=== PATIENT | male | born 1975 | race Caucasian/White ===

== ENCOUNTER 2017-01-08 00:15 | Inpatient (IN) | payer OTHER ==
[~2017-01-08] VITALS: Ht 177.8 cm; Wt 110.7 kg
[2017-01-08 00:01] VITALS: BP 144/96
[2017-01-08] MEDS ORDERED: hydrALAZINE 20 MG/ML VIAL. IVP PRN (00:30)
[2017-01-08] MEDS ORDERED: ONDANSETRON PF 4 MG/2 ML VIAL. IV PRN (00:30)
[2017-01-08] MEDS ORDERED: HYDROmorphone 2 MG/ML VIAL IV PRN (00:30)
[2017-01-08] MEDS ORDERED: ACETAMINOPHEN 325 MG TABLET. PO PRN (00:30)
[2017-01-08] MEDS: IV NORMAL SALINE 1000ML BAG 1,000 ML IV SCH ×2 (00:51→10:30)
[2017-01-08] MEDS ORDERED: HYDROmorphone 2 MG/ML VIAL IV ONE (01:45)
[2017-01-08 03:10] VITALS: BP 144/86
[2017-01-08] MEDS ORDERED: ROPI1TAB PO (03:46)
[2017-01-08] MEDS ORDERED: AMLO5TAB2 PO (03:46)
[2017-01-08] MEDS ORDERED: MIRT7.5T8 PO (03:46)
[2017-01-08] MEDS ORDERED: POTA10TA17 PO (03:46)
[2017-01-08] MEDS ORDERED: ZOLP5TAB PO (03:46)
[2017-01-08] MEDS ORDERED: PARO40TA3 PO (03:46)
[2017-01-08] MEDS: HYDROmorphone 2 MG/ML VIAL IV PRN ×4 (04:28→12:49)
[2017-01-08 05:05] LABS: BASO % 0 % (0-3); EOS % 1 % (0-3); HEMATOCRIT 39.4 % (39.0-53.0); HEMOGLOBIN 13.3 g/dL (13.0-17.5); LYMPH % 22 % (24-48); MEAN CORPUSCULAR HEMOGLOBIN 31 pg (25-35); MEAN CORPUSCULAR HGB CONC 34 g/dL (31-37); MEAN CORPUSCULAR VOLUME 90 fL (79-100); MONO % 10 % (0-9); NEUT % 67 % (31-73); PLATELET COUNT 190 x10^3/uL (140-400); RED BLOOD COUNT 4.35 x10^6/uL (4.30-5.70); RED CELL DISTRIBUTION WIDTH 13.5 % (11.5-14.5); WHITE BLOOD COUNT 8.9 x10^3/uL (4.0-11.0)
[2017-01-08 05:26] LABS: PROTHROMBIN TIME PATIENT 12.4 SEC (11.7-14.0)
[2017-01-08 05:35] LABS: CALCIUM 8.4 mg/dL (8.5-10.1); CREATININE 1.8 mg/dL (0.7-1.3); GFR 41.8; POTASSIUM 4.1 mmol/L (3.5-5.1)
[2017-01-08 07:00] VITALS: BP 139/85
[2017-01-08 10:52] VITALS: BP 115/67
--- NOTE | 2017-01-08 11:52 | SSS ---
ADMIT DATE: 01/08/2017 CHIEF COMPLAINT: Flank pain and kidney stone. HISTORY OF PRESENT ILLNESS: The patient is a pleasant 41-year-old relatively healthy male who presented from the [place]. Basically, he went to the [place], he had flank pain and his urine had a large amount of blood. They did a CAT scan, which showed a 10 mm stone. He was then transferred to our facility for evaluation and treatment. Unfortunately, this morning when I arrived, it appears we do not have urology coverage. I just called the [facility], has accepted the patient. We plan to transfer. PAST MEDICAL HISTORY: Kidney stones. ALLERGIES: None. FAMILY HISTORY: Kidney stones. SOCIAL HISTORY: Does not drink, smoke or take drugs. He is . MEDICATIONS: Reviewed, please refer to the [facility]. REVIEW OF SYSTEMS: GENERAL: No history of weight change, weakness or fevers. SKIN: No bruising, hair changes or rashes. EYES: No blurred, double or loss of vision. NOSE AND THROAT: No history of nosebleeds, hoarseness or sore throat. HEART: No history of palpitations, chest pain or shortness of breath on exertion. LUNGS: Denies cough, hemoptysis, wheezing or shortness of breath. GASTROINTESTINAL: He complains of left flank pain. GENITOURINARY: No history of frequency, urgency, hesitancy or nocturia. NEUROLOGIC: Denies history of numbness, tingling, tremor or weakness. PSYCHIATRIC: No history of panic, anxiety or depression. ENDOCRINE: No history of heat or cold intolerance, polyuria or polydipsia. EXTREMITIES: Denies muscle weakness, joint pain, pain on walking or stiffness. PHYSICAL EXAMINATION: VITAL SIGNS: Temperature afebrile, pulse 98, respirations 18, blood pressure 142/60. GENERAL: He is alert, cooperative. HEART: Normal S1, S2. LUNGS: Clear. ABDOMEN: Soft, tender in the left flank. EXTREMITIES: No edema. SKIN: No rashes. PSYCHIATRIC: He is a little depressed. VASCULAR: Good capillary refill. ENDOCRINE: No thyromegaly. LYMPHATICS: No cervical nodes. HEMATOPOIETIC: No bruising. LABORATORY DATA: Reviewed. His only abnormality is his creatinine of 1.8. CAT scan of the abdomen shows a 10 mm stone with obstruction of the left proximal ureter. ASSESSMENT AND PLAN: Hydronephrosis and kidney stones. The patient is being transferred to . We will continue current fluids and medications. DISPOSITION: To . ACTIVITY: As tolerated. DIET: N.p.o. Total time 32 minutes. MARYCHUY OBRIEN DO DR: MONA/christopher JOB#: [id number] / [id number]
[2017-01-08 14:40] VITALS: BP 128/78
== END 2017-01-08 14:25 | disposition short-term general hospital (02) | DRG 694 ==
LOC: 5 SOUTH 00:15
PROVIDERS: ADMIT Internal Medicine; ATTEND Internal Medicine
DX: N13.2 Hydronephrosis with renal and ureteral calculous obstruction (principal); Z87.442 Personal history of urinary calculi
CPT/HCPCS: 36415; 80048; 85027; 85610; J1170; J7030